=== PATIENT | female | born 1995 | race Caucasian/White ===

== ENCOUNTER 2017-01-10 13:05 | Emergency (ER) | payer OTHER ==
[~2017-01-10] VITALS: Ht 172.7 cm; Wt 83.4 kg
--- OUTSIDE RECORDS SUMMARY | 2017-01-10 13:15 | XMS REPORT | Summary of Care ---
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 Refills: 0 Start 31-Oct-2016 Active Lomotil 2.5-0.025 MG Oral Tablet TAKE 1 TABLET Daily PRN Refills: 0 Start 31-Oct-2016 Active Ondansetron 8 MG Oral Tablet Dispersible 1 tablet every 6 hours as needed for nausea Quantity: 15 Refills: 0 Arlette Romero Start 31-Oct-2016 Active Allergies and Adverse Reactions Name Dates Details No Known Drug Allergies (Allergy) Status: Active Procedures Procedure Dates Details Procedures not documented Immunization Name Dates Details Immunizations not documented Social History Name Dates Details - Status: Name Dates Details Never smoker Vital Signs Date Test Result Details 31-Oct-2016 13:57 BP Systolic 120 mm[Hg] Status: Comments: Location: ; Position: BP Diastolic 58 mm[Hg] Status: Comments: Location: ; Position: Temperature 98.8 f Status: Comments: Method: Heart Rate 50 /min Status: Comments: Location: ; Weight 185.125 lb Status: Physical Findings 97 Status: Comments: O2 Saturation Results Date Description Value Details Results not documented Plan of Care Name Dates Details Planned Observations Planned Goals not documented Interventions Provided Medication ChangesOndansetron 8 MG Oral Tablet Dispersible - Start Instructions Name Dates Details Instructions not documented Encounters Appointment; Arlette Romero Encounter Diagnosis: Problem not documented On 31-Oct-2016 13:20
[2017-01-10] MEDS ORDERED: BIRTH CONTROL PILL PO (13:33)
[2017-01-10 13:40] LABS: BILIRUBIN,URINE Negative (Negative); COLOR,URINE Yellow; GLUCOSE, URINE (UA) Negative (Negative); LEUKOCYTE ESTERASE ,URINE 1+ (Negative); UROBILINOGEN,URINE 0.2 mg/dL (0.2-1.0)
[2017-01-10 13:41] LABS: CLARITY,URINE Slightly Cloudy
[2017-01-10 13:42] LABS: URINE CENTRIFUGED VOLUME 12 mL
[2017-01-10 13:46] LABS: HCG,QUALITATIVE URINE Negative (Negative); RBC,URINE 20-50 /HPF
[2017-01-10] MEDS ORDERED: IBUPROFEN 200 MG (MOTRIN) TAB PO ONE (14:15)
[2017-01-10] MEDS ORDERED: SULFAMETHOXAZOLE/TRIMETHOPRIM 800-160 MG (SEPTRA DS) TAB PO ONE (14:15)
[2017-01-10] MEDS ORDERED: SULF1TAB35 PO (14:17)
[2017-01-10 14:27] VITALS: BP 127/65
== END 2017-01-10 14:25 | disposition home or self-care (01) ==
LOC: ED 13:11
DX: N39.0 Urinary tract infection, site not specified (principal); R10.2 Pelvic and perineal pain
CPT/HCPCS: 81003; 81015; 81025; 87077; 87088; 87186; 99282